=== PATIENT | female | born 1980 | race Caucasian/White ===

== ENCOUNTER → 2017-05-20 | Outpatient (CLI) | payer OTHER ==
[~2017-05-20] MED LIST: BCP TD; CEPHALEXIN500 M1 PO; MOTRIN 800800 MG/TAB PO; NORCO 325 MG-51 TAB PO; PERCOCET 325 MG1 TA2 PO; PRENATAL1 TA1 PO; SILVADENE 400G400 GM TP
== END ==
LOC: MC.RAD 07:30
DX: N63.10 Unspecified lump in the right breast, unspecified quadrant (principal)

== ENCOUNTER → 2023-06-16 | Outpatient (CLI) | payer BC | LOC: CANSCHCLI → MC.RAD 13:04 | DX: Z12.31 Encounter for screening mammogram for malignant neoplasm of breast (principal) ==